=== PATIENT | female | born 1940 | race African-American/Black ===

== ENCOUNTER 2022-12-07 08:56 | Inpatient (IN) | payer OTHER, BC ==
[2022-12-07] MEDS ORDERED: ETOMIDATE 40 MG/20 ML VIAL IVPUSH ONE (09:14)
[2022-12-07] MEDS ORDERED: ROCURONIUM BROMIDE 50 MG/5 ML VIAL IV ONE (09:14)
[2022-12-07 09:35] LABS: ARTERIAL BLD GAS O2 SATURATION 93.2 % (95-98); ARTERIAL BLOOD GAS BASE EXCESS -8.9 mmol/L (-2-2); ARTERIAL BLOOD GAS PO2 93.8 mmHg (80-100)
[2022-12-07 09:36] LABS: BASO % 0.3 % (0-2.0); EOS % 0.5 % (0-4.5); HEMOGLOBIN 11.6 GM/dL (10.7-15.3); LYMPH % 11.9 % (8-40); MCH 31.4 pg (25.7-33.7); MCHC 31.5 g/dl (32.0-36.0); MEAN CELL VOLUME 99.8 fl (80-96); MEAN PLT VOLUME 9.3 fl (7.5-11.1); MONO % 7.7 % (3.8-10.2); NEUT % 79.6 % (42.8-82.8); PLATELET COUNT 196 10^3/uL (134-434); RDW 14.4 % (11.6-15.6); WHITE BLOOD COUNT 18.4 K/mm3 (4.0-10.0)
[2022-12-07 09:38] LABS: ARTERIAL BLOOD GAS pH 7.066 (7.350-7.450)
[2022-12-07 09:42] LABS: INR 0.99 (0.83-1.09); PROTHROMBIN TIME (PATIENT) 11.5 SEC (9.7-13.0)
[2022-12-07 09:45] LABS: ACTIVATED PTT 31.9 SECONDS (25.2-36.5)
[2022-12-07 09:48] LABS: VENOUS BASE EXCESS -8.4 mmol/L (-2-2); VENOUS O2 SATURATION 99.5 % (70-80)
[2022-12-07 09:51] LABS: VENOUS PH 7.128 (7.310-7.410)
[2022-12-07 10:03] LABS: ALBUMIN 3.3 g/dl (3.4-5.0); BLOOD UREA NITROGEN 25.7 mg/dL (7-18); MAGNESIUM 2.3 mg/dL (1.8-2.4)
[2022-12-07 10:05] LABS: TOT PROT 7.3 g/dl (6.4-8.2)
[2022-12-07 10:06] LABS: CREATININE 0.9 mg/dL (0.55-1.3)
[2022-12-07] MEDS: PROPOFOL 1,000,000 MCG/100 ML VIAL IVPB SCH ×2 (10:06→17:48)
[2022-12-07] MEDS ORDERED: PROPOFOL 1,000,000 MCG/100 ML VIAL ONE (10:07)
[2022-12-07 10:11] LABS: N-TERMINAL BNP 1511.4 pg/ml (5-450)
[2022-12-07 10:35] LABS: BILIRUBIN,TOTAL 0.5 mg/dL (0.2-1)
[2022-12-07] MEDS ORDERED: FUROSEMIDE 40 MG/4 ML INJECTABLE VIAL IVPUSH ONE (11:38)
[2022-12-07 12:06] LABS: EPI CELLS >36 /uL (0-25.1); HYALINE CASTS 15 /uL (0-3.1); URINE APPEARANCE CLOUDY; URINE BACTERIA 72 /uL (0-1359); URINE BILIRUBIN NEGATIVE (NEGATIVE); URINE COLOR YELLOW; URINE GLUCOSE (UA) NEGATIVE (NEGATIVE); URINE KETONE NEGATIVE (NEGATIVE); URINE LEUK ESTERASE NEGATIVE (NEGATIVE); URINE NITRITE NEGATIVE (NEGATIVE); URINE PROTEIN 3+ (NEGATIVE); URINE RBC 9 /uL (0-23.9); URINE UROBILINOGEN 0.2 mg/dL (0.2-1.0); URINE WBC 51 /uL (0-25.8)
[2022-12-07] MEDS ORDERED: NITROGLYCERIN 25MG/D5W 250ML 25 MG/250 ML ML IVPB ONE (13:13)
[2022-12-07] MEDS: NITROGLYCERIN 25MG/D5W 250ML 25 MG/250 ML ML IVPB SCH ×2 (15:03→17:34)
[2022-12-07] MEDS ORDERED: CARBIDOPA/LEVODOPA 25/100 TABLET (FP) PO SCH (15:45)
[2022-12-07] MEDS ORDERED: ALBUTEROL SO4 0.083% IH SOL 2.5 MG/3 ML VIAL.NEB. NEB PRN (15:50)
[2022-12-07] MEDS ORDERED: VANCOMYCIN 1 GM/200 ML PREMIX BAG (RESTRICTED TO ID ONLY) IVPB ONE (15:59)
[2022-12-07] MEDS ORDERED: PIPERACILLIN/TAZOB 3.375 GM 3.375 GM in DEXTROSE 5%-WATER - 50 ML IVPB SCH (16:00)
[2022-12-07 16:12] LABS: LACTIC ACID 2.8 mmol/L (0.4-2.0)
[2022-12-07] MEDS: FENTANYL NS IVPB 500 MCG/100 ML BAG IVPB SCH (17:12)
[2022-12-07] MEDS: HEPARIN NA (PORCINE) 5,000 UNITS/ML 1ML VIAL SQ SCH ×2 (17:13→22:24)
[2022-12-07] MEDS: PANTOPRAZOLE SODIUM 40 MG VIAL IVPUSH SCH (17:13)
[2022-12-07 17:19] LABS: ARTERIAL BLD GAS O2 SATURATION 97.8 % (95-98); ARTERIAL BLOOD GAS BASE EXCESS -2.2 mmol/L (-2-2); ARTERIAL BLOOD GAS PO2 109.5 mmHg (80-100); ARTERIAL BLOOD GAS pH 7.354 (7.350-7.450)
[2022-12-07 17:20] LABS: ALLENS TEST POSITIVE
[2022-12-07 17:21] LABS: VENT MODE A/C; VENT RATE 18
[2022-12-07] MEDS: MUPIROCIN 2% TOPICAL OINTMENT FOR DECOLONIZATION NS SCH (22:22)
[2022-12-07] MEDS: CHLORHEXIDINE GLUCONATE 4% CLEANSER FOR DECOLONIZATION TP SCH (22:24)
[2022-12-07] MEDS: CARBIDOPA/LEVODOPA 25/100 TABLET (FP) NGT SCH (22:24)
[2022-12-08] MEDS ORDERED: PIPERACILLIN/TAZOBACTAM 3.375 GM VIAL IVPB ONE (01:19)
[2022-12-08] MEDS: PIPERACILLIN/TAZOB 3.375 GM 3.375 GM in DEXTROSE 5%-WATER - 50 ML IVPB SCH ×3 (01:37→18:36)
[2022-12-08] MEDS: HEPARIN NA (PORCINE) 5,000 UNITS/ML 1ML VIAL SQ SCH ×3 (05:08→22:00)
[2022-12-08] MEDS: CARBIDOPA/LEVODOPA 25/100 TABLET (FP) NGT SCH ×3 (05:09→21:59)
[2022-12-08 07:05] LABS: BASO % 0.3 % (0-2.0); EOS % 0.3 % (0-4.5); HEMATOCRIT 31.6 % (32.4-45.2); HEMOGLOBIN 10.3 GM/dL (10.7-15.3); LYMPH % 5.1 % (8-40); MCHC 32.7 g/dl (32.0-36.0); MEAN CELL VOLUME 94.6 fl (80-96); MEAN PLT VOLUME 10.2 fl (7.5-11.1); MONO % 5.8 % (3.8-10.2); NEUT % 88.5 % (42.8-82.8); PLATELET COUNT 134 10^3/uL (134-434); RBC 3.34 M/mm3 (3.60-5.2); RDW 14.1 % (11.6-15.6); WHITE BLOOD COUNT 15.3 K/mm3 (4.0-10.0)
[2022-12-08 07:09] LABS: INR 1.17 (0.83-1.09); PROTHROMBIN TIME (PATIENT) 13.5 SEC (9.7-13.0)
[2022-12-08 07:12] LABS: ACTIVATED PTT 43.8 SECONDS (25.2-36.5)
[2022-12-08 07:26] LABS: CALCIUM 8.4 mg/dL (8.5-10.1)
[2022-12-08 07:27] LABS: ALBUMIN 2.8 g/dl (3.4-5.0); BLOOD UREA NITROGEN 31.7 mg/dL (7-18); MAGNESIUM 1.9 mg/dL (1.8-2.4)
[2022-12-08 07:30] LABS: PHOSPHOROUS 3.4 mg/dL (2.5-4.9)
[2022-12-08 07:31] LABS: BILIRUBIN,TOTAL 0.6 mg/dL (0.2-1); TOT PROT 6.1 g/dl (6.4-8.2)
[2022-12-08] MEDS: PROPOFOL 1,000,000 MCG/100 ML VIAL IVPB SCH ×2 (09:51→22:10)
[2022-12-08] MEDS: PANTOPRAZOLE SODIUM 40 MG VIAL IVPUSH SCH (09:51)
[2022-12-08] MEDS: MUPIROCIN 2% TOPICAL OINTMENT FOR DECOLONIZATION NS SCH ×2 (10:28→21:59)
[2022-12-08] MEDS ORDERED: FUROSEMIDE 40 MG/4 ML INJECTABLE VIAL IVPUSH ONE (12:09)
[2022-12-08] MEDS ORDERED: hydrALAZINE HCL 20 MG/ML VIAL IVPUSH PRN (12:30)
[2022-12-08] MEDS: hydrALAZINE HCL 20 MG/ML VIAL IVPUSH PRN (12:42)
[2022-12-08] MEDS: NITROGLYCERIN 25MG/D5W 250ML 25 MG/250 ML ML IVPB SCH (13:45)
[2022-12-08] MEDS ORDERED: KETAMINE HCL 200 MG/20 ML VIAL IVPUSH STA (17:20)
[2022-12-08] MEDS ORDERED: MIDAZOLAM HCL 2 MG/2 ML SINGLE DOSE VIAL IVPUSH STA (17:20)
[2022-12-08] MEDS ORDERED: ROCURONIUM BROMIDE 50 MG/5 ML VIAL IV STA (17:21)
[2022-12-08] MEDS ORDERED: RAPID SEQUENCE INTUBATION KIT NR ONE (17:29)
[2022-12-08] MEDS ORDERED: NOREPINEPHRINE BITARTRATE 4 MG/4 ML ML IV ONE (17:37)
[2022-12-08] MEDS: NOREPINEPHRINE BITARTRATE 4,000 MCG in DEXTROSE 5%-WATER - 496 ML IV SCH (18:36)
[2022-12-08] MEDS: FENTANYL NS IVPB 500 MCG/100 ML BAG IVPB SCH ×2 (18:37→22:10)
[2022-12-08] MEDS: CHLORHEXIDINE GLUCONATE 4% CLEANSER FOR DECOLONIZATION TP SCH (21:59)
[2022-12-08] MEDS: METOPROLOL TARTRATE 25 MG TABLET (FP) PO SCH (21:59)
[2022-12-09] MEDS: PIPERACILLIN/TAZOB 3.375 GM 3.375 GM in DEXTROSE 5%-WATER - 50 ML IVPB SCH ×4 (02:53→17:00)
[2022-12-09] MEDS: CARBIDOPA/LEVODOPA 25/100 TABLET (FP) NGT SCH ×3 (05:08→21:44)
[2022-12-09] MEDS: HEPARIN NA (PORCINE) 5,000 UNITS/ML 1ML VIAL SQ SCH ×3 (05:08→21:44)
[2022-12-09 07:27] LABS: HEMATOCRIT 30.8 % (32.4-45.2); HEMOGLOBIN 10.4 GM/dL (10.7-15.3); MCH 31.7 pg (25.7-33.7); MCHC 33.7 g/dl (32.0-36.0); MEAN CELL VOLUME 94.2 fl (80-96); MEAN PLT VOLUME 9.5 fl (7.5-11.1); PLATELET COUNT 149 10^3/uL (134-434); RBC 3.27 M/mm3 (3.60-5.2); WHITE BLOOD COUNT 15.3 K/mm3 (4.0-10.0)
[2022-12-09 07:48] LABS: CALCIUM 8.3 mg/dL (8.5-10.1)
[2022-12-09 07:50] LABS: MAGNESIUM 1.9 mg/dL (1.8-2.4)
[2022-12-09 07:52] LABS: CREATININE 1.4 mg/dL (0.55-1.3); PHOSPHOROUS 4.5 mg/dL (2.5-4.9)
[2022-12-09] MEDS: PANTOPRAZOLE SODIUM 40 MG VIAL IVPUSH SCH (09:04)
[2022-12-09] MEDS: MUPIROCIN 2% TOPICAL OINTMENT FOR DECOLONIZATION NS SCH ×2 (09:04→21:45)
[2022-12-09] MEDS: ENALAPRIL MALEATE 5 MG TABLET PO SCH (09:04)
[2022-12-09] MEDS: amLODIPine BESYLATE 5 MG TABLET (FP) PO SCH (09:04)
[2022-12-09] MEDS: SODIUM CHLORIDE 1,000 ML IV SCH (09:11)
[2022-12-09] MEDS: METOPROLOL TARTRATE 25 MG TABLET (FP) PO SCH ×2 (09:11→21:44)
[2022-12-09] MEDS ORDERED: GLYCOPYRROLATE 1 MG/5 ML VIAL IVPB ONE (12:18)
[2022-12-09] MEDS ORDERED: GLYCOPYRROLATE 0.2 MG/1 ML VIAL IVPB ONE (12:45)
[2022-12-09] MEDS: PROPOFOL 1,000,000 MCG/100 ML VIAL IVPB SCH (13:43)
[2022-12-09] MEDS: NITROGLYCERIN 25MG/D5W 250ML 25 MG/250 ML ML IVPB SCH (13:43)
[2022-12-09] MEDS ORDERED: VANCOMYCIN/WATER FOR INJ (PEG) 1,000 MG/200 ML BAG IVPB ONE (14:00)
[2022-12-09 15:17] VITALS: BMI 18.0
[2022-12-09] MEDS: FENTANYL NS IVPB 500 MCG/100 ML BAG IVPB SCH (15:55)
[2022-12-09] MEDS: ACETAMINOPHEN 1000 MG/100 ML BAG IVPB PRN (16:19)
[2022-12-09] MEDS: NOREPINEPHRINE BITARTRATE 4,000 MCG in DEXTROSE 5%-WATER - 496 ML IV SCH (18:00)
[2022-12-09] MEDS: CHLORHEXIDINE GLUCONATE 4% CLEANSER FOR DECOLONIZATION TP SCH (21:45)
[2022-12-10] MEDS: PIPERACILLIN/TAZOB 3.375 GM 3.375 GM in DEXTROSE 5%-WATER - 50 ML IVPB SCH ×3 (02:12→17:04)
[2022-12-10] MEDS: CARBIDOPA/LEVODOPA 25/100 TABLET (FP) NGT SCH ×5 (05:49→23:30)
[2022-12-10] MEDS: HEPARIN NA (PORCINE) 5,000 UNITS/ML 1ML VIAL SQ SCH ×3 (05:49→23:30)
[2022-12-10 07:39] LABS: BASO % 0.2 % (0-2.0); EOS % 2.1 % (0-4.5); HEMATOCRIT 29.4 % (32.4-45.2); HEMOGLOBIN 9.9 GM/dL (10.7-15.3); LYMPH % 6.5 % (8-40); MCH 32.4 pg (25.7-33.7); MCHC 33.7 g/dl (32.0-36.0); MEAN CELL VOLUME 96.2 fl (80-96); MEAN PLT VOLUME 9.9 fl (7.5-11.1); MONO % 5.2 % (3.8-10.2); PLATELET COUNT 164 10^3/uL (134-434); RBC 3.06 M/mm3 (3.60-5.2); RDW 14.1 % (11.6-15.6); WHITE BLOOD COUNT 10.7 K/mm3 (4.0-10.0)
[2022-12-10 07:56] LABS: ALBUMIN 2.5 g/dl (3.4-5.0); BLOOD UREA NITROGEN 33.8 mg/dL (7-18); CALCIUM 8.4 mg/dL (8.5-10.1)
[2022-12-10 07:59] LABS: PHOSPHOROUS 2.8 mg/dL (2.5-4.9)
[2022-12-10 08:01] LABS: BILIRUBIN,TOTAL 0.6 mg/dL (0.2-1); TOT PROT 5.9 g/dl (6.4-8.2)
[2022-12-10] MEDS: ACETAMINOPHEN 1000 MG/100 ML BAG IVPB PRN (08:26)
[2022-12-10] MEDS: SODIUM CHLORIDE 1,000 ML IV SCH (08:27)
[2022-12-10] MEDS: amLODIPine BESYLATE 5 MG TABLET (FP) PO SCH (09:43)
[2022-12-10] MEDS: METOPROLOL TARTRATE 25 MG TABLET (FP) PO SCH ×2 (09:43→23:31)
[2022-12-10] MEDS: PANTOPRAZOLE SODIUM 40 MG VIAL IVPUSH SCH (09:43)
[2022-12-10] MEDS: ENALAPRIL MALEATE 5 MG TABLET PO SCH (09:43)
[2022-12-10] MEDS: MUPIROCIN 2% TOPICAL OINTMENT FOR DECOLONIZATION NS SCH (09:46)
[2022-12-10] MEDS ORDERED: LEVOTHYROXINE NA 25 MCG TABLET (FP) PO SCH (10:00)
[2022-12-10] MEDS ORDERED: PREGABALIN 75 MG CAPSULE PO SCH (10:00)
[2022-12-10] MEDS ORDERED: DEXTROSE 5%-0.45% SALINE 1,000 ML IV SCH (10:15)
[2022-12-10] MEDS ORDERED: VANCOMYCIN/WATER FOR INJ (PEG) 750 MG/150 ML BAG IVPB SCH ×2 (10:30→22:00)
[2022-12-10] MEDS: KCL 10 MEQ IVPB 10 MEQ/100 ML INFUS.BAG IVPB SCH ×3 (12:15→14:56)
[2022-12-10] MEDS: VANCOMYCIN/WATER FOR INJ (PEG) 1,000 MG/200 ML BAG IVPB SCH (13:42)
[2022-12-10] MEDS: DORZOLAMIDE 2% HCL OPHTHALMIC SOLUTION 10 ML BOTTLE OU SCH ×2 (16:00→23:31)
[2022-12-10] MEDS: LATANOPROST 0.005% OPHTH SOLN 2.5ML BOTTLE OU SCH (23:31)
[2022-12-10] MEDS: hydrALAZINE HCL 20 MG/ML VIAL IVPUSH PRN (23:58)
[2022-12-11] MEDS: VANCOMYCIN/WATER FOR INJ (PEG) 1,000 MG/200 ML BAG IVPB SCH ×2 (00:56→14:21)
[2022-12-11] MEDS: PIPERACILLIN/TAZOB 3.375 GM 3.375 GM in DEXTROSE 5%-WATER - 50 ML IVPB SCH ×3 (02:35→17:59)
[2022-12-11] MEDS: DORZOLAMIDE 2% HCL OPHTHALMIC SOLUTION 10 ML BOTTLE OU SCH ×3 (06:12→23:17)
[2022-12-11] MEDS: HEPARIN NA (PORCINE) 5,000 UNITS/ML 1ML VIAL SQ SCH ×3 (06:12→23:13)
[2022-12-11 08:19] LABS: BASO % 0.4 % (0-2.0); EOS % 1.9 % (0-4.5); HEMATOCRIT 30.1 % (32.4-45.2); HEMOGLOBIN 10.1 GM/dL (10.7-15.3); LYMPH % 7.7 % (8-40); MCH 31.7 pg (25.7-33.7); MCHC 33.7 g/dl (32.0-36.0); MEAN CELL VOLUME 94.3 fl (80-96); MEAN PLT VOLUME 9.5 fl (7.5-11.1); PLATELET COUNT 181 10^3/uL (134-434); RBC 3.19 M/mm3 (3.60-5.2); RDW 13.7 % (11.6-15.6); WHITE BLOOD COUNT 7.9 K/mm3 (4.0-10.0)
[2022-12-11 08:59] LABS: CALCIUM 8.4 mg/dL (8.5-10.1)
[2022-12-11 09:00] LABS: ALBUMIN 2.7 g/dl (3.4-5.0); BLOOD UREA NITROGEN 18.2 mg/dL (7-18); MAGNESIUM 1.9 mg/dL (1.8-2.4)
[2022-12-11 09:04] LABS: CREATININE 0.7 mg/dL (0.55-1.3); PHOSPHOROUS 1.4 mg/dL (2.5-4.9); TOT PROT 6.3 g/dl (6.4-8.2)
[2022-12-11 09:05] LABS: BILIRUBIN,TOTAL 0.6 mg/dL (0.2-1)
[2022-12-11] MEDS: amLODIPine BESYLATE 5 MG TABLET (FP) PO SCH (09:53)
[2022-12-11] MEDS: NIFEdipine E.R 60 MG TABLET PO SCH (09:53)
[2022-12-11] MEDS: METOPROLOL TARTRATE 25 MG TABLET (FP) PO SCH ×2 (09:53→23:14)
[2022-12-11] MEDS: PANTOPRAZOLE SODIUM 40 MG VIAL IVPUSH SCH (09:53)
[2022-12-11] MEDS: CARBIDOPA/LEVODOPA 25/100 TABLET (FP) NGT SCH ×4 (09:53→23:15)
[2022-12-11] MEDS: ENALAPRIL MALEATE 5 MG TABLET PO SCH (09:54)
[2022-12-11] MEDS ORDERED: LEVOTHYROXINE SODIUM 100 MCG 5 ML VIAL IVPUSH SCH (10:00)
[2022-12-11] MEDS ORDERED: AMINO ACIDS 4.25%/D5W 1,000 ML IV SCH (11:00)
[2022-12-11] MEDS ORDERED: hydrALAZINE HCL 20 MG/ML VIAL IVPUSH PRN (15:38)
[2022-12-11] MEDS ORDERED: ALBUTEROL SO4 0.083% IH SOL 2.5 MG/3 ML VIAL.NEB. NEB PRN (15:38)
[2022-12-11] MEDS: PREGABALIN 75 MG CAPSULE PO SCH (23:15)
[2022-12-11] MEDS: GABAPENTIN 250 MG/5 ML ORAL SOLUTION, 470 ML BOTTLE NGT SCH (23:16)
[2022-12-11] MEDS: LATANOPROST 0.005% OPHTH SOLN 2.5ML BOTTLE OU SCH (23:18)
[2022-12-11] MEDS ORDERED: ACETAMINOPHEN 650 MG/20.3 ML ORAL SOLUTION (CUPS) NGT ONE (23:51)
[2022-12-12] MEDS: VANCOMYCIN/WATER FOR INJ (PEG) 1,000 MG/200 ML BAG IVPB SCH ×2 (01:07→14:44)
[2022-12-12] MEDS: PIPERACILLIN/TAZOB 3.375 GM 3.375 GM in DEXTROSE 5%-WATER - 50 ML IVPB SCH ×3 (02:15→17:06)
[2022-12-12] MEDS: MUPIROCIN 2% TOPICAL OINTMENT FOR DECOLONIZATION NS SCH (04:58)
[2022-12-12] MEDS: DORZOLAMIDE 2% HCL OPHTHALMIC SOLUTION 10 ML BOTTLE OU SCH ×3 (05:56→21:39)
[2022-12-12] MEDS: HEPARIN NA (PORCINE) 5,000 UNITS/ML 1ML VIAL SQ SCH ×3 (05:56→21:39)
[2022-12-12] MEDS: LEVOTHYROXINE NA 25 MCG TABLET (FP) NGT SCH (06:03)
[2022-12-12] MEDS: AMINO ACIDS/PROTEIN HYDROLYS 30 ML LIQUID.PKT PO SCH (08:38)
[2022-12-12] MEDS: GABAPENTIN 250 MG/5 ML ORAL SOLUTION, 470 ML BOTTLE NGT SCH ×3 (08:38→21:38)
[2022-12-12] MEDS: ENALAPRIL MALEATE 5 MG TABLET PO SCH (09:45)
[2022-12-12] MEDS: METOPROLOL TARTRATE 25 MG TABLET (FP) PO SCH ×2 (09:45→21:37)
[2022-12-12] MEDS: CARBIDOPA/LEVODOPA 25/100 TABLET (FP) NGT SCH ×4 (09:45→21:37)
[2022-12-12] MEDS: FAMOTIDINE 40 MG/5 ML ORAL SUSPENSION NGT SCH (09:45)
[2022-12-12] MEDS: amLODIPine BESYLATE 5 MG TABLET (FP) PO SCH (09:46)
[2022-12-12] MEDS: PREGABALIN 75 MG CAPSULE PO SCH ×2 (09:46→21:37)
[2022-12-12] MEDS: NIFEdipine E.R 60 MG TABLET PO SCH (09:46)
[2022-12-12] MEDS: LATANOPROST 0.005% OPHTH SOLN 2.5ML BOTTLE OU SCH (21:38)
[2022-12-13] MEDS: PIPERACILLIN/TAZOB 3.375 GM 3.375 GM in DEXTROSE 5%-WATER - 50 ML IVPB SCH ×3 (02:40→18:23)
[2022-12-13] MEDS: VANCOMYCIN/WATER FOR INJ (PEG) 1,000 MG/200 ML BAG IVPB SCH ×2 (02:41→14:09)
[2022-12-13] MEDS: HEPARIN NA (PORCINE) 5,000 UNITS/ML 1ML VIAL SQ SCH ×3 (06:24→22:17)
[2022-12-13] MEDS: LEVOTHYROXINE NA 25 MCG TABLET (FP) NGT SCH (06:24)
[2022-12-13] MEDS: DORZOLAMIDE 2% HCL OPHTHALMIC SOLUTION 10 ML BOTTLE OU SCH ×3 (06:24→22:16)
[2022-12-13] MEDS: amLODIPine BESYLATE 5 MG TABLET (FP) PO SCH (10:30)
[2022-12-13] MEDS: AMINO ACIDS/PROTEIN HYDROLYS 30 ML LIQUID.PKT PO SCH (10:30)
[2022-12-13] MEDS: ENALAPRIL MALEATE 5 MG TABLET PO SCH (10:30)
[2022-12-13] MEDS: CARBIDOPA/LEVODOPA 25/100 TABLET (FP) NGT SCH ×4 (10:30→22:16)
[2022-12-13] MEDS: FAMOTIDINE 40 MG/5 ML ORAL SUSPENSION NGT SCH (10:52)
[2022-12-13] MEDS: GABAPENTIN 250 MG/5 ML ORAL SOLUTION, 470 ML BOTTLE NGT SCH ×3 (10:52→22:18)
[2022-12-13] MEDS: PREGABALIN 75 MG CAPSULE PO SCH ×2 (10:53→22:16)
[2022-12-13] MEDS: METOPROLOL TARTRATE 25 MG TABLET (FP) PO SCH ×2 (10:53→22:17)
[2022-12-13] MEDS: NIFEdipine E.R 60 MG TABLET PO SCH (10:54)
[2022-12-13 13:06] LABS: CHLORIDE 111 mmol/L (98-107); SODIUM 144 mmol/L (136-145)
[2022-12-13 13:07] LABS: CALCIUM 8.5 mg/dL (8.5-10.1)
[2022-12-13 13:08] LABS: BLOOD UREA NITROGEN 19.6 mg/dL (7-18); CO2 26 mmol/L (21-32); GLUCOSE,RANDOM 102 mg/dL (74-106)
[2022-12-13 13:11] LABS: CREATININE 0.7 mg/dL (0.55-1.3)
[2022-12-13 13:13] LABS: ANION GAP 7 MMOL/L (8-16)
[2022-12-13] MEDS: POTASSIUM CHLORIDE ORAL LIQUID 20 MEQ/15 ML NGT SCH ×2 (14:41→22:16)
[2022-12-13] MEDS ORDERED: FUROSEMIDE 40 MG/4 ML INJECTABLE VIAL IVPUSH ONE (18:04)
[2022-12-13] MEDS: LATANOPROST 0.005% OPHTH SOLN 2.5ML BOTTLE OU SCH (22:16)
[2022-12-14] MEDS: VANCOMYCIN/WATER FOR INJ (PEG) 1,000 MG/200 ML BAG IVPB SCH ×2 (00:44→12:45)
[2022-12-14] MEDS: PIPERACILLIN/TAZOB 3.375 GM 3.375 GM in DEXTROSE 5%-WATER - 50 ML IVPB SCH ×3 (02:33→17:46)
[2022-12-14] MEDS: LEVOTHYROXINE NA 25 MCG TABLET (FP) NGT SCH (06:13)
[2022-12-14] MEDS: DORZOLAMIDE 2% HCL OPHTHALMIC SOLUTION 10 ML BOTTLE OU SCH ×3 (06:13→21:05)
[2022-12-14] MEDS: HEPARIN NA (PORCINE) 5,000 UNITS/ML 1ML VIAL SQ SCH ×3 (06:13→21:01)
[2022-12-14] MEDS: AMINO ACIDS/PROTEIN HYDROLYS 30 ML LIQUID.PKT PO SCH (08:20)
[2022-12-14 08:30] LABS: HEMATOCRIT 27.2 % (32.4-45.2); HEMOGLOBIN 9.4 GM/dL (10.7-15.3); MCH 32.5 pg (25.7-33.7); MCHC 34.3 g/dl (32.0-36.0); MEAN CELL VOLUME 94.8 fl (80-96); PLATELET COUNT 208 10^3/uL (134-434); RBC 2.87 M/mm3 (3.60-5.2); WHITE BLOOD COUNT 7.4 K/mm3 (4.0-10.0)
[2022-12-14 08:47] LABS: ALBUMIN 2.4 g/dl (3.4-5.0); CALCIUM 8.2 mg/dL (8.5-10.1)
[2022-12-14 08:48] LABS: BLOOD UREA NITROGEN 22.7 mg/dL (7-18)
[2022-12-14 08:50] LABS: CREATININE 0.7 mg/dL (0.55-1.3)
[2022-12-14 08:52] LABS: BILIRUBIN,TOTAL 0.4 mg/dL (0.2-1); TOT PROT 5.7 g/dl (6.4-8.2)
[2022-12-14 09:04] LABS: ANISOCYTOSIS 1+; MACROCYTOSIS 0
[2022-12-14] MEDS: POTASSIUM CHLORIDE ORAL LIQUID 20 MEQ/15 ML NGT SCH ×2 (09:53→21:02)
[2022-12-14] MEDS: NIFEdipine E.R 60 MG TABLET PO SCH (09:53)
[2022-12-14] MEDS: ENALAPRIL MALEATE 5 MG TABLET PO SCH (09:54)
[2022-12-14] MEDS: amLODIPine BESYLATE 5 MG TABLET (FP) PO SCH (09:54)
[2022-12-14] MEDS: PREGABALIN 75 MG CAPSULE PO SCH ×2 (09:54→21:03)
[2022-12-14] MEDS: FAMOTIDINE 40 MG/5 ML ORAL SUSPENSION NGT SCH (09:54)
[2022-12-14] MEDS: CARBIDOPA/LEVODOPA 25/100 TABLET (FP) NGT SCH ×4 (09:54→21:01)
[2022-12-14] MEDS: METOPROLOL TARTRATE 25 MG TABLET (FP) PO SCH ×2 (09:54→21:01)
[2022-12-14] MEDS: GABAPENTIN 250 MG/5 ML ORAL SOLUTION, 470 ML BOTTLE NGT SCH ×3 (09:57→21:03)
[2022-12-14] MEDS: LATANOPROST 0.005% OPHTH SOLN 2.5ML BOTTLE OU SCH (21:04)
[2022-12-15] MEDS: VANCOMYCIN/WATER FOR INJ (PEG) 1,000 MG/200 ML BAG IVPB SCH ×2 (01:15→13:11)
[2022-12-15] MEDS: PIPERACILLIN/TAZOB 3.375 GM 3.375 GM in DEXTROSE 5%-WATER - 50 ML IVPB SCH ×3 (02:25→17:11)
[2022-12-15] MEDS: DORZOLAMIDE 2% HCL OPHTHALMIC SOLUTION 10 ML BOTTLE OU SCH ×3 (05:43→22:11)
[2022-12-15] MEDS: HEPARIN NA (PORCINE) 5,000 UNITS/ML 1ML VIAL SQ SCH ×3 (05:43→22:10)
[2022-12-15] MEDS: LEVOTHYROXINE NA 25 MCG TABLET (FP) NGT SCH (06:00)
[2022-12-15] MEDS: AMINO ACIDS/PROTEIN HYDROLYS 30 ML LIQUID.PKT PO SCH (07:58)
[2022-12-15] MEDS: FAMOTIDINE 40 MG/5 ML ORAL SUSPENSION NGT SCH (09:57)
[2022-12-15] MEDS: CARBIDOPA/LEVODOPA 25/100 TABLET (FP) NGT SCH ×4 (09:57→22:11)
[2022-12-15] MEDS: ENALAPRIL MALEATE 5 MG TABLET PO SCH (09:57)
[2022-12-15] MEDS: POTASSIUM CHLORIDE ORAL LIQUID 20 MEQ/15 ML NGT SCH ×2 (09:57→22:11)
[2022-12-15] MEDS: PREGABALIN 75 MG CAPSULE PO SCH ×2 (09:57→22:10)
[2022-12-15] MEDS: NIFEdipine E.R 60 MG TABLET PO SCH (09:58)
[2022-12-15] MEDS: METOPROLOL TARTRATE 25 MG TABLET (FP) PO SCH ×2 (09:58→22:10)
[2022-12-15] MEDS: GABAPENTIN 250 MG/5 ML ORAL SOLUTION, 470 ML BOTTLE NGT SCH ×2 (09:58→22:37)
[2022-12-15] MEDS: amLODIPine BESYLATE 5 MG TABLET (FP) PO SCH (09:58)
[2022-12-15] MEDS ORDERED: ALBUTEROL SO4 0.083% IH SOL 2.5 MG/3 ML VIAL.NEB. NEB SCH (10:45)
[2022-12-15] MEDS ORDERED: FUROSEMIDE 40 MG/5 ML UNIT-DOSE CUP GT SCH (10:45)
[2022-12-15] MEDS ORDERED: ALBUTEROL SO4 0.083% IH SOL 2.5 MG/3 ML VIAL.NEB. NEB PRN (10:46)
[2022-12-15] MEDS ORDERED: ALBUTEROL SO4 2.5/IPRATROPIUM 0.5 INH SOL 3 ML VIAL.NEB. NEB PRN (10:46)
[2022-12-15] MEDS: FUROSEMIDE 40 MG/4 ML INJECTABLE VIAL IVPUSH SCH (11:10)
[2022-12-15] MEDS: ALBUTEROL SO4 2.5/IPRATROPIUM 0.5 INH SOL 3 ML VIAL.NEB. NEB SCH ×3 (11:48→19:57)
[2022-12-15] MEDS: LATANOPROST 0.005% OPHTH SOLN 2.5ML BOTTLE OU SCH (22:11)
[2022-12-16] MEDS: ALBUTEROL SO4 2.5/IPRATROPIUM 0.5 INH SOL 3 ML VIAL.NEB. NEB SCH ×6 (00:30→20:12)
[2022-12-16] MEDS: VANCOMYCIN/WATER FOR INJ (PEG) 1,000 MG/200 ML BAG IVPB SCH ×3 (00:37→16:08)
[2022-12-16] MEDS: PIPERACILLIN/TAZOB 3.375 GM 3.375 GM in DEXTROSE 5%-WATER - 50 ML IVPB SCH ×3 (01:03→18:15)
[2022-12-16] MEDS: HEPARIN NA (PORCINE) 5,000 UNITS/ML 1ML VIAL SQ SCH ×3 (06:12→22:20)
[2022-12-16] MEDS: LEVOTHYROXINE NA 25 MCG TABLET (FP) NGT SCH (06:12)
[2022-12-16] MEDS: DORZOLAMIDE 2% HCL OPHTHALMIC SOLUTION 10 ML BOTTLE OU SCH ×3 (06:12→22:21)
[2022-12-16] MEDS: AMINO ACIDS/PROTEIN HYDROLYS 30 ML LIQUID.PKT PO SCH (09:24)
[2022-12-16] MEDS: PREGABALIN 75 MG CAPSULE PO SCH ×2 (09:25→22:20)
[2022-12-16] MEDS: ENALAPRIL MALEATE 5 MG TABLET PO SCH (09:25)
[2022-12-16] MEDS: METOPROLOL TARTRATE 25 MG TABLET (FP) PO SCH ×2 (09:25→22:20)
[2022-12-16] MEDS: NIFEdipine E.R 60 MG TABLET PO SCH (09:25)
[2022-12-16] MEDS: amLODIPine BESYLATE 5 MG TABLET (FP) PO SCH (09:25)
[2022-12-16] MEDS: CARBIDOPA/LEVODOPA 25/100 TABLET (FP) NGT SCH ×3 (09:25→18:14)
[2022-12-16] MEDS: POTASSIUM CHLORIDE ORAL LIQUID 20 MEQ/15 ML NGT SCH (09:25)
[2022-12-16] MEDS: FUROSEMIDE 40 MG/4 ML INJECTABLE VIAL IVPUSH SCH (09:38)
[2022-12-16] MEDS: FAMOTIDINE 40 MG/5 ML ORAL SUSPENSION NGT SCH (09:40)
[2022-12-16] MEDS: GABAPENTIN 250 MG/5 ML ORAL SOLUTION, 470 ML BOTTLE NGT SCH (09:44)
[2022-12-16] MEDS: FLUCONAZOLE 50 MG TABLET PO SCH (15:26)
[2022-12-16] MEDS: CARBIDOPA/LEVODOPA 25/100 TABLET (FP) PO SCH (22:20)
[2022-12-16] MEDS: LATANOPROST 0.005% OPHTH SOLN 2.5ML BOTTLE OU SCH (22:21)
[2022-12-16] MEDS: GABAPENTIN 250 MG/5 ML ORAL SOLUTION, 470 ML BOTTLE PO SCH ×2 (22:21→22:32)
[2022-12-16] MEDS: POTASSIUM CHLORIDE ORAL LIQUID 20 MEQ/15 ML PO SCH ×2 (22:21→22:32)
[2022-12-17] MEDS: ALBUTEROL SO4 2.5/IPRATROPIUM 0.5 INH SOL 3 ML VIAL.NEB. NEB SCH ×7 (00:32→23:18)
[2022-12-17] MEDS: PIPERACILLIN/TAZOB 3.375 GM 3.375 GM in DEXTROSE 5%-WATER - 50 ML IVPB SCH ×2 (01:10→09:44)
[2022-12-17] MEDS: HEPARIN NA (PORCINE) 5,000 UNITS/ML 1ML VIAL SQ SCH ×3 (06:36→21:46)
[2022-12-17] MEDS: LEVOTHYROXINE NA 25 MCG TABLET (FP) PO SCH (06:37)
[2022-12-17] MEDS: DORZOLAMIDE 2% HCL OPHTHALMIC SOLUTION 10 ML BOTTLE OU SCH ×3 (06:37→21:58)
[2022-12-17 08:14] LABS: HEMATOCRIT 28.8 % (32.4-45.2); HEMOGLOBIN 9.8 GM/dL (10.7-15.3); MCHC 33.9 g/dl (32.0-36.0); MEAN CELL VOLUME 94.3 fl (80-96); MEAN PLT VOLUME 8.6 fl (7.5-11.1); PLATELET COUNT 289 10^3/uL (134-434); RBC 3.06 M/mm3 (3.60-5.2); RDW 14.4 % (11.6-15.6)
[2022-12-17] MEDS: AMINO ACIDS/PROTEIN HYDROLYS 30 ML LIQUID.PKT PO SCH (08:34)
[2022-12-17 08:37] LABS: ALBUMIN 2.4 g/dl (3.4-5.0); CALCIUM 8.8 mg/dL (8.5-10.1)
[2022-12-17 08:38] LABS: BLOOD UREA NITROGEN 27.3 mg/dL (7-18)
[2022-12-17 08:40] LABS: CREATININE 0.9 mg/dL (0.55-1.3)
[2022-12-17 08:42] LABS: BILIRUBIN,TOTAL 0.3 mg/dL (0.2-1); TOT PROT 6.1 g/dl (6.4-8.2)
[2022-12-17 08:56] LABS: ANISOCYTOSIS 0; HELMET CELLS 0; HOWELL-JOLLY BODIES 0; MACROCYTOSIS 0; OVALOCYTE 0; ROULEAU 0; SICKELED CELLS 0; TARGET CELLS 0; TEAR DROP CELLS 0; TOXIC GRANULATION 0
[2022-12-17] MEDS: FLUCONAZOLE 50 MG TABLET PO SCH (09:43)
[2022-12-17] MEDS: FUROSEMIDE 40 MG/4 ML INJECTABLE VIAL IVPUSH SCH (09:44)
[2022-12-17] MEDS: GABAPENTIN 250 MG/5 ML ORAL SOLUTION, 470 ML BOTTLE PO SCH ×2 (09:45→21:46)
[2022-12-17] MEDS: PREGABALIN 75 MG CAPSULE PO SCH ×2 (09:45→21:46)
[2022-12-17] MEDS: POTASSIUM CHLORIDE ORAL LIQUID 20 MEQ/15 ML PO SCH ×2 (09:45→21:46)
[2022-12-17] MEDS: METOPROLOL TARTRATE 25 MG TABLET (FP) PO SCH ×2 (09:46→21:46)
[2022-12-17] MEDS: ENALAPRIL MALEATE 5 MG TABLET PO SCH (09:46)
[2022-12-17] MEDS: amLODIPine BESYLATE 5 MG TABLET (FP) PO SCH (09:46)
[2022-12-17] MEDS: NIFEdipine E.R 60 MG TABLET PO SCH (09:46)
[2022-12-17] MEDS: CARBIDOPA/LEVODOPA 25/100 TABLET (FP) PO SCH ×4 (09:46→21:45)
[2022-12-17] MEDS: FAMOTIDINE 40 MG/5 ML ORAL SUSPENSION PO SCH (12:36)
[2022-12-17] MEDS: LATANOPROST 0.005% OPHTH SOLN 2.5ML BOTTLE OU SCH (21:58)
[2022-12-18] MEDS: ALBUTEROL SO4 2.5/IPRATROPIUM 0.5 INH SOL 3 ML VIAL.NEB. NEB SCH ×6 (04:53→23:14)
[2022-12-18] MEDS: DORZOLAMIDE 2% HCL OPHTHALMIC SOLUTION 10 ML BOTTLE OU SCH ×3 (06:17→21:55)
[2022-12-18] MEDS: HEPARIN NA (PORCINE) 5,000 UNITS/ML 1ML VIAL SQ SCH ×2 (06:17→14:25)
[2022-12-18] MEDS: LEVOTHYROXINE NA 25 MCG TABLET (FP) PO SCH (06:18)
[2022-12-18] MEDS: AMINO ACIDS/PROTEIN HYDROLYS 30 ML LIQUID.PKT PO SCH (08:47)
[2022-12-18] MEDS: FLUCONAZOLE 50 MG TABLET PO SCH (10:27)
[2022-12-18] MEDS: GABAPENTIN 250 MG/5 ML ORAL SOLUTION, 470 ML BOTTLE PO SCH ×2 (10:28→21:54)
[2022-12-18] MEDS: POTASSIUM CHLORIDE ORAL LIQUID 20 MEQ/15 ML PO SCH ×2 (10:30→11:11)
[2022-12-18] MEDS: amLODIPine BESYLATE 5 MG TABLET (FP) PO SCH (11:08)
[2022-12-18] MEDS: CARBIDOPA/LEVODOPA 25/100 TABLET (FP) PO SCH ×4 (11:09→21:53)
[2022-12-18] MEDS: PREGABALIN 75 MG CAPSULE PO SCH ×2 (11:09→21:53)
[2022-12-18] MEDS: NIFEdipine E.R 60 MG TABLET PO SCH (11:09)
[2022-12-18] MEDS: ENALAPRIL MALEATE 5 MG TABLET PO SCH (11:10)
[2022-12-18] MEDS: FAMOTIDINE 40 MG/5 ML ORAL SUSPENSION PO SCH (11:10)
[2022-12-18] MEDS: METOPROLOL TARTRATE 25 MG TABLET (FP) PO SCH ×2 (11:10→21:53)
[2022-12-18] MEDS: FUROSEMIDE 40 MG/4 ML INJECTABLE VIAL IVPUSH SCH (11:10)
[2022-12-18] MEDS: LATANOPROST 0.005% OPHTH SOLN 2.5ML BOTTLE OU SCH (21:55)
[2022-12-19] MEDS: ALBUTEROL SO4 2.5/IPRATROPIUM 0.5 INH SOL 3 ML VIAL.NEB. NEB SCH ×2 (04:30→07:40)
[2022-12-19] MEDS: DORZOLAMIDE 2% HCL OPHTHALMIC SOLUTION 10 ML BOTTLE OU SCH (06:12)
[2022-12-19] MEDS: LEVOTHYROXINE NA 25 MCG TABLET (FP) PO SCH (06:12)
[2022-12-19] MEDS ORDERED: FUROSEMIDE 20 MG TABLET (FP) PO SCH (10:00)
[2022-12-19] MEDS: ENALAPRIL MALEATE 5 MG TABLET PO SCH (10:09)
[2022-12-19] MEDS: CARBIDOPA/LEVODOPA 25/100 TABLET (FP) PO SCH (10:09)
[2022-12-19] MEDS: AMINO ACIDS/PROTEIN HYDROLYS 30 ML LIQUID.PKT PO SCH (10:09)
[2022-12-19] MEDS: amLODIPine BESYLATE 5 MG TABLET (FP) PO SCH (10:09)
[2022-12-19] MEDS: PREGABALIN 75 MG CAPSULE PO SCH (10:09)
[2022-12-19] MEDS: NIFEdipine E.R 60 MG TABLET PO SCH (10:09)
[2022-12-19] MEDS: METOPROLOL TARTRATE 25 MG TABLET (FP) PO SCH (10:09)
[2022-12-19] MEDS: FAMOTIDINE 40 MG/5 ML ORAL SUSPENSION PO SCH (10:10)
[2022-12-19] MEDS: GABAPENTIN 250 MG/5 ML ORAL SOLUTION, 470 ML BOTTLE PO SCH (10:10)
[2022-12-19] MEDS: FLUCONAZOLE 50 MG TABLET PO SCH (10:11)
[2022-12-19 10:16] VITALS: BP 120/64; PULSE 62; RESP 18; TEMP 98
== END 2022-12-19 11:03 | DRG 208 ==
LOC: JER 08:56 → JERBED 09:57 → JICU 17:04 → J4S 12-10 18:32
PROVIDERS: ADMIT Internal Medicine Pulmonary Disease; ATTEND Internal Medicine
PROC: 5A1945Z Respiratory Ventilation, 24-96 Consecutive Hours (ICD-10-PCS; principal; 2022-12-07)
PROC: 0BH17EZ Insertion of Endotracheal Airway into Trachea, Via Natural or Artificial Opening (ICD-10-PCS; 2022-12-07)
DX: J96.02 Acute respiratory failure with hypercapnia (principal); J18.9 Pneumonia, unspecified organism; E87.20 Acidosis, unspecified; I24.8 Other forms of acute ischemic heart disease; N17.9 Acute kidney failure, unspecified; R64 Cachexia; Z68.1 Body mass index [BMI] 19.9 or less, adult; G91.9 Hydrocephalus, unspecified; J96.01 Acute respiratory failure with hypoxia; I10 Essential (primary) hypertension; J45.909 Unspecified asthma, uncomplicated; E03.9 Hypothyroidism, unspecified; G20 Parkinson's disease; D72.829 Elevated white blood cell count, unspecified; I27.20 Pulmonary hypertension, unspecified
CPT/HCPCS: 36415; 36600; 70450-TC; 71045-TC-FY; 74018-TC-FY; 74019-TC-FY; 74230-TC-FY; 80048; 80053; 81003; 82550; 82553; 82803; 82962; 83605; 83735; 83880; 84100; 84439; 84443; 84481; 84484; 85025; 85027; 85610; 85730; 86850; 86900; 86901; 87040; 87070; 87077; 87086; 87186; 87205; 92611-GN; 93005; 93010; 93306-TC; 94002; 94640; 97161-GP; 99291; C9803-CS; G0480; J1644; U0003; U0005